=== PATIENT | female | born 1990 | race Caucasian/White ===

== ENCOUNTER → 2017-03-01 | Outpatient (REF) | payer MEDICAID | LOC: M SFHCLERA 17:08 | PROVIDERS: ATTEND Nurse Practitioner Family | DX: N89.8 Other specified noninflammatory disorders of vagina (principal) ==

== ENCOUNTER → 2017-09-23 | Outpatient (REF) | payer OTHER, MEDICAID | LOC: M SFHCLERA 18:45 | DX: J02.9 Acute pharyngitis, unspecified (principal) ==

== ENCOUNTER → 2023-05-05 | Outpatient (CLI) | payer OTHER, MEDICAID | LOC: M SOG 07:57 | PROVIDERS: ATTEND Orthopaedic Surgery | DX: M54.6 Pain in thoracic spine (principal); M54.50 Low back pain, unspecified; M47.817 Spondylosis without myelopathy or radiculopathy, lumbosacral region; M47.814 Spondylosis without myelopathy or radiculopathy, thoracic region ==